=== PATIENT | male | born 1950 | race Caucasian/White ===

== ENCOUNTER 2018-12-22 15:08 | Emergency (ER) | payer MEDICARE, OTHER, SELFPAY ==
[2018-12-22 15:18] VITALS: BP 110/71; PULSE 81; RESP 16; TEMP 36.7; O2SAT 97; BMI 38.7
--- NOTE | 2018-12-22 16:05 | DI.CT.S_ITS ---
PROCEDURE: CT CERVICAL SPINE WO CON INDICATIONS: fall pain TECHNIQUE: Noncontrast 3 mm thick sections acquired from the skull base to the T4 level. Sagittal and coronal reformats were then constructed. For radiation dose reduction, the following was used: automated exposure control, adjustment of mA and/or kV according to patient size. COMPARISON: None. FINDINGS: Image quality: Excellent. Bones: No fractures or dislocations. Visualized superior ribs are intact. Multilevel endplate osteophytes and multilevel facet hypertrophy. Soft tissues: Prevertebral soft tissues are normal in thickness. No paravertebral hematomas. No apical pneumothoraces. IMPRESSION: Multilevel degenerative disc and facet disease. No fracture. Dictated by: Carline Leo M.D. on 12/22/2018 at 15:36 Approved by: Carline Leo M.D. on 12/22/2018 at 15:40
--- NOTE | 2018-12-22 16:05 | DI.CT.S_ITS ---
PROCEDURE: CT HEAD/BRAIN WO CON INDICATIONS: fall on xarelto TECHNIQUE: Noncontrast 4.5 mm thick angled axial sections acquired from the foramen magnum to the vertex, with coronal and sagittal reformats. For radiation dose reduction, the following was used: automated exposure control, adjustment of mA and/or kV according to patient size. COMPARISON: None. FINDINGS: Image quality: Excellent. CSF spaces: Basal cisterns are patent. No extra-axial fluid collections. The ventricles are symmetric in size and shape. Brain: No intracranial bleeds or masses. There is cerebral volume loss for age, with resultant ventricular and sulcal prominence. There are periventricular and deep white matter chronic small vessel ischemic changes. There is intracranial internal carotid artery atherosclerosis. Skull and face: Calvarium and visualized facial bones appear intact, without suspicious lesions. Sinuses: Visualized sinuses and mastoids are clear. IMPRESSION: No acute intracranial abnormality. Dictated by: Carline Leo M.D. on 12/22/2018 at 15:36 Approved by: Carline Leo M.D. on 12/22/2018 at 15:36
[2018-12-22] MEDS: ACETAMINOPHEN 325 MG TABLET 650 MG PO (16:28)
--- NOTE | 2018-12-22 17:21 | ED_ITS ---
HPI - Wound/Laceration General Chief Complaint: Wound/Laceration Stated Complaint: Laceration on left thumb Time Seen by Provider: 12/22/18 16:05 Source: patient Mode of arrival: ambulatory Limitations: no limitations History of Present Illness HPI narrative: Patient seen evaluated by nurse practitioner please see other note from same day. Related Data Allergies Allergy/AdvReac Type Severity Reaction Status Date / Time Beta-Blockers Allergy Verified 12/22/18 15:21 (Beta-Adrenergic Bloc [facility] Medical History Atrial fibrillation (Acute) Social History Smoking Status: Unknown if ever smoked Social History Smoking Status: Unknown if ever smoked Exam Initial Vital Signs Initial Vital Signs: Vital Signs Temperature 98.1 F 12/22/18 15:18 Pulse Rate 81 12/22/18 15:18 Respiratory Rate 16 12/22/18 15:18 Blood Pressure 110/71 12/22/18 15:18 Pulse Oximetry 97 12/22/18 15:18 Course Orders Ordered: Discontinued Medications Acetaminophen (Tylenol) 650 mg PO NOW ONE Stop: 12/22/18 16:07 Last Admin: 12/22/18 16:28 Dose: 650 mg Vital Signs - 8 hr 12/22/18 15:18 Temperature 98.1 F Pulse Rate 81 Respiratory Rate 16 Blood Pressure 110/71 Pulse Oximetry 97 MDM - Wound/Laceration Imaging Data CT scan - head: Radiologist's impression: PROCEDURE: CT HEAD/BRAIN WO CON INDICATIONS: fall on xarelto TECHNIQUE: Noncontrast 4.5 mm thick angled axial sections acquired from the foramen magnum to the vertex, with coronal and sagittal reformats. For radiation dose reduction, the following was used: automated exposure control, adjustment of mA and/or kV according to patient size. COMPARISON: None. FINDINGS: Image quality: Excellent. CSF spaces: Basal cisterns are patent. No extra-axial fluid collections. The ventricles are symmetric in size and shape. Brain: No intracranial bleeds or masses. There is cerebral volume loss for age, with resultant ventricular and sulcal prominence. There are periventricular and deep white matter chronic small vessel ischemic changes. There is intracranial internal carotid artery atherosclerosis. Skull and face: Calvarium and visualized facial bones appear intact, without suspicious lesions. Sinuses: Visualized sinuses and mastoids are clear. IMPRESSION: No acute intracranial abnormality. Dictated by: Carline Leo M.D. on 12/22/2018 at 15:36 ct cervical: Radiologist's impression: PROCEDURE: CT CERVICAL SPINE WO CON INDICATIONS: fall pain TECHNIQUE: Noncontrast 3 mm thick sections acquired from the skull base to the T4 level. Sagittal and coronal reformats were then constructed. For radiation dose reduction, the following was used: automated exposure control, adjustment of mA and/or kV according to patient size. COMPARISON: None. FINDINGS: Image quality: Excellent. Bones: No fractures or dislocations. Visualized superior ribs are intact. Multilevel endplate osteophytes and multilevel facet hypertrophy. Soft tissues: Prevertebral soft tissues are normal in thickness. No paravertebral hematomas. No apical pneumothoraces. IMPRESSION: Multilevel degenerative disc and facet disease. No fracture. Dictated by: Carline Leo M.D. on 12/22/2018 at 15:36 Discharge Plan Departure Patient Disposition: Home Clinical Impression: Closed head injury, Cervical strain, Laceration of left thumb Discharge Date/Time: 12/22/18 17:41 Interventions: ED Discharge Assessment Last Done: 12/22/18 17:41 Instructions: DI for Laceration Repair, DI for Closed Head Injury Activity Restrictions/Additional Instructions: 1. Have your suture removed in 5-7 days, you may go to walk-in clinic, return to the ER or call your primary care physician. 2. No soaking in water including dishes, bathtubs, Lakes, swimming pools etc 3. Signs of infection include, but not limited to, increased redness, increased swelling, increased pain, fever and purulent drainage, if the symptoms should arise, you may need an antibiotic and you should have a reevaluation either by your primary care provider or by the emergency department. Referrals: Geovanna Valdez ARNP [Primary Care Provider] -
[2018-12-22 17:30] VITALS: BP 113/64; PULSE 71; RESP 17; O2SAT 99
--- NOTE | 2018-12-22 18:06 | ED.WOUNDLAC ---
HPI - Wound/Laceration <MATILDA Dueñas - Last Filed: 12/22/18 18:07> General Chief Complaint: Wound/Laceration Stated Complaint: Laceration on left thumb Time Seen by Provider: 12/22/18 16:05 Source: patient Mode of arrival: ambulatory Limitations: no limitations Related Data Allergies Allergy/AdvReac Type Severity Reaction Status Date / Time Beta-Blockers Allergy Verified 12/22/18 15:21 (Beta-Adrenergic Bloc <Shirley Zhang DO - Last Filed: 12/22/18 18:40> General Source: patient Mode of arrival: ambulatory Limitations: no limitations History of Present Illness HPI narrative: Patient is a 68-year-old male on Xarelto for atrial fibrillation fell backwards. [place] site when he tripped and fell backwards hitting his head. He is complaining of some head pain neck pain. He denies any nausea or vomiting. No numbness or tingling in his extremities. He has no back pain. He does have a laceration on his left thumb. <Shirley Zhang DO - Last Filed: 12/22/18 18:40> Review of Systems GENERAL: Denies chills, fatigue, malaise, fever, sweats, travel HEENT: Denies sinus pain, ear pain, sore throat, difficulty swallowing, neck pain RESPIRATORY: Denies dyspnea, cough, wheezing, hemoptysis, sputum. CARDIOVASCULAR: Denies chest pain, palpitations, orthopnea, edema GASTROINTESTINAL: Denies nausea, vomiting, abdominal pain, diarrhea, constipation, melena. : Denies dysuria, frequency, incontinence, hematuria, urinary retention, flank pain. MUSCULOSKELETAL: Denies weakness, joint pain, or bony pain SKIN: + laceration 5 NEUROLOGIC: + positive head injury PSYCHIATRIC: No concerning psychosocial issues. 12 point review of systems is negative except for those stated above and HPI PFSH <MATILDA Dueñas - Last Filed: 12/22/18 18:07> Medical History Atrial fibrillation (Acute) Social History Smoking Status: Unknown if ever smoked Social History Smoking Status: Unknown if ever smoked Exam <MATILDA Dueñas - Last Filed: 12/22/18 18:07> Initial Vital Signs Initial Vital Signs: Vital Signs Temperature 98.1 F 12/22/18 15:18 Pulse Rate 81 12/22/18 15:18 Respiratory Rate 16 12/22/18 15:18 Blood Pressure 110/71 12/22/18 15:18 Pulse Oximetry 97 12/22/18 15:18 <Shirleycyndie Zhang DO - Last Filed: 12/22/18 18:40> Initial Vital Signs Initial Vital Signs: Vital Signs Temperature 98.1 F 12/22/18 15:18 Pulse Rate 81 12/22/18 15:18 Respiratory Rate 16 12/22/18 15:18 Blood Pressure 110/71 12/22/18 15:18 Pulse Oximetry 97 12/22/18 15:18 GENERAL: Alert well-appearing male no acute distress HEENT: Head atraumatic, no abrasion no crepitations no depression EOMI, pupils reactive, face symmetric, moist mucous membranes NECK: Some mild midline pain but he has full range of motion no step-offs. He is moving his neck pretty easily. CARDIOVASCULAR: Regular rate and rhythm without murmurs, rubs or gallops. RESPIRATORY: Breath sounds equal bilaterally, no wheezes rales or rhonchi. ABDOMEN: Soft, nontender. Normoactive bowel sounds all 4 quadrants. No guarding or rebound. BACK: No vertebral tenderness no step-off EXTREMITIES: Normal range of motion, no clubbing or edema. Neurovascularly intact NEUROLOGICAL: Alert and oriented x4.Normal gait and speech. Cranial nerves II through XII grossly intact. SKIN: Warm, dry, no laceration, no petechiae, no rashes or lesions. Procedures <MATILDA Dueñas - Last Filed: 12/22/18 18:07> Laceration Repair Left thumb: Site: hand Side (If applicable): left Size (cm): 5.5 Description: linear Depth: simple, single layer Local Anesthetic: lidocaine 1% and with bicarb Amount of anesthesia used (mL): 6 Pre-repair: wound explored Skin layer closed with: nylon Size (cm): 3-0 Number of sutures: 6 Technique: simple, interrupted Subcutaneous layer closed with: vicryl Course <MATILDA Dueñas - Last Filed: 12/22/18 18:07> Orders Ordered: ED Orders 12/22/18 16:05 CT cervical spine wo con Stat CT head/brain wo con Stat Discontinued Medications Acetaminophen (Tylenol) 650 mg PO NOW ONE Stop: 12/22/18 16:07 Last Admin: 12/22/18 16:28 Dose: 650 mg Vital Signs - 8 hr 12/22/18 15:18 12/22/18 17:30 Temperature 98.1 F Pulse Rate 81 71 Respiratory Rate 16 17 Blood Pressure 110/71 Blood Pressure [Right Arm] 113/64 Pulse Oximetry 97 99 <Shirley Zhang DO - Last Filed: 12/22/18 18:40> Orders Ordered: ED Orders 12/22/18 16:05 CT cervical spine wo con Stat CT head/brain wo con Stat Discontinued Medications Acetaminophen (Tylenol) 650 mg PO NOW ONE Stop: 12/22/18 16:07 Last Admin: 12/22/18 16:28 Dose: 650 mg Vital Signs - 8 hr 12/22/18 15:18 12/22/18 17:30 Temperature 98.1 F Pulse Rate 81 71 Respiratory Rate 16 17 Blood Pressure 110/71 Blood Pressure [Right Arm] 113/64 Pulse Oximetry 97 99 <Shirley Zhang DO - Last Filed: 12/22/18 18:40> Imaging Data CT scan - head: Radiologist's impression: PROCEDURE: CT HEAD/BRAIN WO CON INDICATIONS: fall on xarelto TECHNIQUE: Noncontrast 4.5 mm thick angled axial sections acquired from the foramen magnum to the vertex, with coronal and sagittal reformats. For radiation dose reduction, the following was used: automated exposure control, adjustment of mA and/or kV according to patient size. COMPARISON: None. FINDINGS: Image quality: Excellent. CSF spaces: Basal cisterns are patent. No extra-axial fluid collections. The ventricles are symmetric in size and shape. Brain: No intracranial bleeds or masses. There is cerebral volume loss for age, with resultant ventricular and sulcal prominence. There are periventricular and deep white matter chronic small vessel ischemic changes. There is intracranial internal carotid artery atherosclerosis. Skull and face: Calvarium and visualized facial bones appear intact, without suspicious lesions. Sinuses: Visualized sinuses and mastoids are clear. IMPRESSION: No acute intracranial abnormality. Dictated by: Carline Leo M.D. on 12/22/2018 at 15:36 Approved by: Carline Leo M.D. on 12/22/2018 at 15:36 ct cervical: Radiologist's impression: PROCEDURE: CT CERVICAL SPINE WO CON INDICATIONS: fall pain TECHNIQUE: Noncontrast 3 mm thick sections acquired from the skull base to the T4 level. Sagittal and coronal reformats were then constructed. For radiation dose reduction, the following was used: automated exposure control, adjustment of mA and/or kV according to patient size. COMPARISON: None. FINDINGS: Image quality: Excellent. Bones: No fractures or dislocations. Visualized superior ribs are intact. Multilevel endplate osteophytes and multilevel facet hypertrophy. Soft tissues: Prevertebral soft tissues are normal in thickness. No paravertebral hematomas. No apical pneumothoraces. IMPRESSION: Multilevel degenerative disc and facet disease. No fracture. Dictated by: Carline Leo M.D. on 12/22/2018 at 15:36 Discharge Plan Departure Patient Disposition: Home Clinical Impression: Closed head injury Qualifiers: Encounter type: initial encounter Qualified Code(s): S09.90XA - Unspecified injury of head, initial encounter Cervical strain Qualifiers: Encounter type: initial encounter Qualified Code(s): S16.1XXA - Strain of muscle, fascia and tendon at neck level, initial encounter Laceration of left thumb Qualifiers: Encounter type: initial encounter Damage to nail status: without damage Foreign body presence: without foreign body Qualified Code(s): S61.012A - Laceration without foreign body of left thumb without damage to nail, initial encounter Discharge Date/Time: 12/22/18 17:41 Interventions: ED Discharge Assessment Last Done: 12/22/18 17:41 Instructions: DI for Laceration Repair, DI for Closed Head Injury Activity Restrictions/Additional Instructions: 1. Have your suture removed in 5-7 days, you may go to walk-in clinic, return to the ER or call your primary care physician. 2. No soaking in water including dishes, bathtubs, Lakes, swimming pools etc 3. Signs of infection include, but not limited to, increased redness, increased swelling, increased pain, fever and purulent drainage, if the symptoms should arise, you may need an antibiotic and you should have a reevaluation either by your primary care provider or by the emergency department. Referrals: Geovanna Valdez ARNP [Primary Care Provider] -
== END 2018-12-22 17:41 | disposition home or self-care (01) ==
PROVIDERS: Emergency Provider Emergency Medicine; PCP Nurse Practitioner Family
DX: S09.90XA Unspecified injury of head, initial encounter (principal); S16.1XXA Strain of muscle, fascia and tendon at neck level, initial encounter; S61.012A Laceration without foreign body of left thumb without damage to nail, initial encounter; W01.0XXA Fall on same level from slipping, tripping and stumbling without subsequent striking against object, initial encounter; Z79.01 Long term (current) use of anticoagulants
CPT/HCPCS: 12002; 70450; 72125; 99283; 99284

== ENCOUNTER → 2025-03-12 | Outpatient (CLI) | payer OTHER, SELFPAY ==
--- NOTE | 2025-03-12 09:24 | DI.ECHO.S_ITS ---
Version: 1 Study ID: [id number] [place] [address] Name: RAFAEL WADDELL Study Date: 03/12/2025, 9: 33 AM : 1950 BP: 152 / 81 mmHg Gender: Male Height: 70 in Age: 74 Years Weight: 290 lb BSA: 2.44 mA??? Ordering: ZENAIDA VELASQUEZ Referring: ZENAIDA VELASQUEZ Clinician: Jonathan Torres Reason For Study: Ischemic heart disease History: Summary Statements This is a technically difficult study enhanced with Definity echocontrast. Afib with controlled rate. Normal LV size and mild concentric LVH; worst movement is demonstrated by anteroseptum; otherwise global hypokinesis with EF 40-45%. Severe biatrial enlargement. No significant valvular abnormalities. Estimated PA systolic pressure is 40 mm Hg assuming RA pressure of 8 mm Hg. Compared to prior echo 02/27/2023, afib is stable; cardiomyopathy is new. Procedure: A two-dimensional transthoracic echocardiogram with color flow and Doppler was performed. The study quality was technically difficult. A contrast injection of Definity was performed to improve assessment of LV function. Comparison is made with the echocardiogram of 02/27/2023. The heart rate ranged between 59-72 bpm during the study. Left Ventricle: The left ventricle is normal in size. There is no thrombus. The ejection fraction is estimated to be 40-45%. Indeterminate diastolic function. Right Ventricle: The right ventricle is normal in size and function. Atria: The left atrium is severely dilated. The right atrium is severely dilated. There is no Doppler evidence for an interatrial shunt. History of atrial-septal closure device. Mitral Valve: There is mild mitral annular calcification. The mitral valve leaflets appear to open well. There is no mitral valve stenosis. There is mild mitral regurgitation. Aortic Valve: The aortic valve is trileaflet. The aortic valve opens well. There is no aortic valve stenosis. No aortic regurgitation is present. Tricuspid Valve: The tricuspid valve is not well visualized, but is grossly normal. There is mild tricuspid regurgitation. Pulmonic Valve: The pulmonic valve is not well seen, but is grossly normal. There is mild pulmonic regurgitation. Great Vessels: The aortic root is normal size. The ascending aorta is normal in size. The aortic arch could not be visualized. The IVC is dilated (diameter is greater than 2.1 cm) yet it collapses greater than 50% with a sniff. This suggests a right atrial pressure of 8 mm Hg. Pericardium/ Pleura: There is no pericardial effusion. 2D and M-Mode Measurements and Calculations LVIDd: 5.2 cm LVOT diam: 2.43 cm LVIDs: 3.3 cm Ao root diam: 3.9 cm IVSd: 1.52 cm asc Aorta Diam: 4.2 cm LVPWd: 1.53 cm LV wheat. diameter/BSA (cm/m^2): 2.12 LV sys. diameter/BSA (cm/m^2): 1.37 RVD1 (basal): 2.9 cm RVD2 (mid): 2.8 cm TAPSE: 1.69 cm LA A4 area: 33.8 contracting executive??? IVC diam: 2.32 cm LA A2 area: 37.5 contracting executive??? RA area: 37.2 contracting executive??? LA length (vol): 8.6 cm RA long axis: 8.0 cm LA vol: 125.8 ml RA vol: 146.6 ml LA vol index: 51.5 ml/mA??? RA : 60.0 ml/mA??? Doppler Measurements and Calculations Ao V2 max: 114.4 cm/sec LVOT Max Kishore: 106.5 cm/sec Ao V2 mean: 80.7 cm/sec LV V1 max P.5 mmHg Ao V2 VTI: 21.9 cm LV V1 VTI: 21.4 cm Ao max P.2 mmHg SV(LVOT): 99.2 ml Ao mean P.9 mmHg RISHI(I,D): 4.5 contracting executive??? RISHI(V,D): 4.3 contracting executive??? RISHI indexed to BSA (cm^2/m^2): 1.85 sev ratio: 0.98 MV E max kishore: 96.5 cm/sec MV dec time: 0.21 sec MV A max kishore: 30.1 cm/sec MV E/A: 3.2 Med Peak E' Kishore: 10.0 cm/sec Lat Peak E' Kishore: 12.6 cm/sec E/e' average: 8.7 TR max kishore: 280.5 cm/sec PA mean P.60 mmHg TR max P.5 mmHg PA V2 max: 96.6 cm/sec Electronically signed by: Laurel Beebe M.D. 03/16/2025, 11: 50 AM
== END ==
LOC: ECHO 09:22
PROVIDERS: PCP Nurse Practitioner Family; Referring Provider Physician Assistant; Visit Provider Physician Assistant
DX: Z00.00 Encounter for general adult medical examination without abnormal findings (principal); I08.1 Rheumatic disorders of both mitral and tricuspid valves; I25.9 Chronic ischemic heart disease, unspecified
CPT/HCPCS: 93306; Q9957